=== PATIENT | male | born 1975 | race Caucasian/White ===

== ENCOUNTER 2017-01-27 13:49 | Emergency (ER) | payer SELFPAY ==
[~2017-01-27] VITALS: Ht 180.3 cm; Wt 71.0 kg
[2017-01-27 13:51] VITALS: BP 139/82
== END 2017-01-27 15:19 ==
LOC: ED 15:13
DX: S93.421A Sprain of deltoid ligament of right ankle, initial encounter (principal); S70.02XA Contusion of left hip, initial encounter; V19.88XA Pedal cyclist (driver) (passenger) injured in other specified transport accidents, initial encounter; Y93.89 Activity, other specified; Y92.89 Other specified places as the place of occurrence of the external cause; Y99.8 Other external cause status
CPT/HCPCS: 72220

== ENCOUNTER 2017-03-07 09:24 | Emergency (ER) | payer SELFPAY ==
[~2017-03-07] VITALS: Ht 180.3 cm; Wt 77.0 kg
[2017-03-07] MEDS ORDERED: SODIUM CHLORIDE 0.9% 1,000 ML IV ONE (09:48)
[2017-03-07] MEDS ORDERED: SODIUM CHLORIDE FLUSH 10ML SYR IVF ONE (10:00)
[2017-03-07] MEDS ORDERED: KETOROLAC 30 MG/1 ML IVPush ONE (10:00)
[2017-03-07] MEDS ORDERED: KETOROLAC 30 MG/1 ML ONE (10:03)
[2017-03-07 10:20] LABS: BLOOD UREA NITROGEN 9 mg/dL (7-18)
[2017-03-07 10:27] LABS: IS PT STATUS REG ER OR PRE ER? YES
[2017-03-07] MEDS ORDERED: OMNIPAQUE 350 MG/ML, 100ML BOTTLE ONE (11:20)
[2017-03-07 11:52] VITALS: BP 127/85
== END 2017-03-07 11:54 | disposition home or self-care (01) ==
LOC: ED 10:10
DX: R07.2 Precordial pain (principal); F17.200 Nicotine dependence, unspecified, uncomplicated
CPT/HCPCS: 36415; 71010; 71275; 80048; 82040; 84484; 85025; 85379; 93005; 96361; 96374; 99285; J1885; J7030; Q9967